=== PATIENT | female | born 1990 | race Caucasian/White ===

== ENCOUNTER 2018-06-15 22:27 | Emergency (ER) | payer BC, OTHER ==
[2018-06-15] MEDS ORDERED: Sodium Chloride 0.9% 1,000 ML IV ONE (22:31)
[2018-06-15] MEDS ORDERED: Ondansetron 4 MG/2 ML SDV IVPUSH ONE (22:31)
[2018-06-15 23:22] LABS: CHLORIDE,CL 105 mmol/L (98-107); SODIUM,NA 140 mmol/L (136-145)
--- NOTE | 2018-06-16 00:02 | EDM.PDOC ---
ED HPI GENERAL MEDICAL PROBLEM - General Chief Complaint: Abdominal Pain Stated Complaint: BACK PAIN Time Seen by Provider: 06/16/18 00:01 Source of Information: Reports: Patient - History of Present Illness INITIAL COMMENTS - FREE TEXT/NARRATIVE: HISTORY AND PHYSICAL: History of present illness: [Patient presents with history of miscarriage, she was treated through an OB in [place] although we are following hCGs. Locally as indicated on the electronic file Last week she did apply some tissue she continues to have pain cramping and some bleeding No fever vomiting chills sweats she does complain of nausea and abdominal cramps 5 out of 10 nonradiating ] Review of systems: As per history of present illness and below otherwise all systems reviewed and negative. Past medical history: As per history of present illness and as reviewed below otherwise noncontributory. Surgical history: As per history of present illness and as reviewed below otherwise noncontributory. Social history: No reported history of drug or alcohol abuse. Family history: As per history of present illness and as reviewed below otherwise noncontributory. Physical exam: HEENT: Atraumatic, normocephalic, pupils reactive, negative for conjunctival pallor or scleral icterus, mucous membranes moist, throat clear, neck supple, nontender, trachea midline. Lungs: Clear to auscultation, breath sounds equal bilaterally, chest nontender. Heart: S1S2, regular, negative for clicks, rubs, or JVD. Abdomen: Soft, nondistended, nontender. Negative for masses or hepatosplenomegaly. Negative for costovertebral tenderness. Pelvis: Stable nontender. Genitourinary: Deferred by patient Rectal: Deferred. Extremities: Atraumatic, negative for cords or calf pain. Neurovascular unremarkable. Neuro: Awake, alert, oriented. Cranial nerves II through XII unremarkable. Cerebellum unremarkable. Motor and sensory unremarkable throughout. Exam nonfocal. Diagnostics: [CBC CMP UA hCG Quant ABO type OB ultrasound ] Therapeutics: [Morphine 2 mg IV Zofran 8 mg IV Phenergan 25 mg IM ] Impression: [ complete ABO type O positive] Definitive disposition and diagnosis as appropriate pending reevaluation and review of above. abdominal Pain Score (Numeric/FACES): 7 - Related Data Allergies Allergy/AdvReac Type Severity Reaction Status Date / Time amoxicillin Allergy Hives Verified 05/20/15 19:10 Penicillins Allergy Hives Verified 05/20/15 19:10 Home Meds: Home Meds Sulfamethoxazole/Trimethoprim [Bactrim Ds Tablet] 1 each PO BID 7 Days tablet 05/19/15 [Rx] Hydrocodone/Acetaminophen [Hydrocodon-Acetaminophen 5-325] 1 each PO Q4HR #10 tablet 05/20/15 [Rx] Past Medical History - Past Health History Medical/Surgical History: Denies Medical/Surgical History HEENT History: Reports: None Cardiovascular History: Reports: None Respiratory History: Reports: None Gastrointestinal History: Reports: None Genitourinary History: Reports: None CARDIAC CARE UNIT NURSE History: Reports: None Musculoskeletal History: Reports: None Neurological History: Reports: None Psychiatric History: Reports: None Endocrine/Metabolic History: Reports: None Hematologic History: Reports: None Immunologic History: Reports: None Oncologic (Cancer) History: Reports: None Dermatologic History: Reports: None - Infectious Disease History Infectious Disease History: Reports: Chicken Pox - Past Surgical History Head Surgeries/Procedures: Reports: None HEENT Surgical History: Reports: None Cardiovascular Surgical History: Reports: None Endocrine Surgical History: Reports: None Musculoskeletal Surgical History: Reports: Other (See Below) Social & Family History - Family History Family Medical History: Noncontributory - Tobacco Use Smoking Status *Q: Never Smoker - Recreational Drug Use Recreational Drug Use: No ED ROS GENERAL - Review of Systems Review Of Systems: See Below ED EXAM, GENERAL - Physical Exam Exam: See Below Course - Vital Signs Last Recorded V/S: Last Vital Signs Temp 97.9 F 06/15/18 22:28 Pulse 80 06/16/18 00:47 Resp 18 06/16/18 00:47 BP 153/82 H 06/16/18 00:47 Pulse Ox 100 06/16/18 00:47 - Orders/Labs/Meds Orders: Active Orders 24 hr Category Date Time Status OB 1st Tri Sgl 1st Gest [US] Stat Exams 06/15/18 22:35 Taken Labs: Laboratory Tests 06/15/18 06/15/18 06/15/18 Range/Units 22:43 22:44 22:44 WBC (4.0-11.0) K/uL RBC (4.30-5.90) M/uL Hgb (12.0-16.0) g/dL Hct (36.0-46.0) % MCV (80.0-98.0) fL MCH (27.0-32.0) pg MCHC (31.0-37.0) g/dL RDW Std Deviation (28.0-62.0) fl RDW Coeff of Renee (11.0-15.0) % Plt Count (150-400) K/uL MPV (7.40-12.00) fL Neut % (Auto) (48.0-80.0) % Lymph % (Auto) (16.0-40.0) % [place] % (Auto) (0.0-15.0) % Eos % (Auto) (0.0-7.0) % Baso % (Auto) (0.0-1.5) % Neut # (Auto) (1.4-5.7) K/uL Lymph # (Auto) (0.6-2.4) K/uL [place] # (Auto) (0.0-0.8) K/uL Eos # (Auto) (0.0-0.7) K/uL Baso # (Auto) (0.0-0.1) K/uL Nucleated RBC % /100WBC Nucleated RBCs # K/uL Sodium 140 (136-145) mmol/L Potassium 4.2 (3.5-5.1) mmol/L Chloride 105 (98-107) mmol/L Carbon Dioxide 21.8 (21.0-32.0) mmol/L BUN 13 (7.0-18.0) mg/dL Creatinine 0.7 (0.6-1.0) mg/dL Est Cr Clr Drug Dosing 107.67 mL/min Estimated GFR (MDRD) > 60.0 ml/min Glucose 93 (74-106) mg/dL Calcium 9.2 (8.5-10.1) mg/dL Total Bilirubin 0.3 (0.2-1.0) mg/dL AST 17 (15-37) IU/L ALT 27 (14-63) IU/L Alkaline Phosphatase 48 (46-116) U/L Total Protein 7.4 (6.4-8.2) g/dL Albumin 3.9 (3.4-5.0) g/dL Globulin 3.5 (2.6-4.0) g/dL Albumin/Globulin Ratio 1.1 (0.9-1.6) Lipase 259 (73-393) U/L HCG, Quant 598.0 mIU/mL Urine Color Urine Appearance Urine pH (5.0-8.0) Ur Specific [place] (1.001-1.035) Urine Protein (NEGATIVE) mg/dL Urine Glucose (UA) (NEGATIVE) mg/dL Urine Ketones (NEGATIVE) mg/dL Urine Occult Blood (NEGATIVE) Urine Nitrite (NEGATIVE) Urine Bilirubin (NEGATIVE) Urine Urobilinogen (<2.0) EU/dL Ur Leukocyte Esterase (NEGATIVE) Blood Type O POSITIVE 06/15/18 06/15/18 Range/Units 22:46 23:30 WBC 10.44 (4.0-11.0) K/uL RBC 4.83 (4.30-5.90) M/uL Hgb 14.1 (12.0-16.0) g/dL Hct 41.8 (36.0-46.0) % MCV 86.5 (80.0-98.0) fL MCH 29.2 (27.0-32.0) pg MCHC 33.7 (31.0-37.0) g/dL RDW Std Deviation 42.8 (28.0-62.0) fl RDW Coeff of Renee 14 (11.0-15.0) % Plt Count 288 (150-400) K/uL MPV 9.40 (7.40-12.00) fL Neut % (Auto) 49.4 (48.0-80.0) % Lymph % (Auto) 41.1 H (16.0-40.0) % [place] % (Auto) 8.3 (0.0-15.0) % Eos % (Auto) 1.0 (0.0-7.0) % Baso % (Auto) 0.2 (0.0-1.5) % Neut # (Auto) 5.2 (1.4-5.7) K/uL Lymph # (Auto) 4.3 H (0.6-2.4) K/uL [place] # (Auto) 0.9 H (0.0-0.8) K/uL Eos # (Auto) 0.1 (0.0-0.7) K/uL Baso # (Auto) 0.0 (0.0-0.1) K/uL Nucleated RBC % 0.0 /100WBC Nucleated RBCs # 0 K/uL Sodium (136-145) mmol/L Potassium (3.5-5.1) mmol/L Chloride (98-107) mmol/L Carbon Dioxide (21.0-32.0) mmol/L BUN (7.0-18.0) mg/dL Creatinine (0.6-1.0) mg/dL Est Cr Clr Drug Dosing mL/min Estimated GFR (MDRD) ml/min Glucose (74-106) mg/dL Calcium (8.5-10.1) mg/dL Total Bilirubin (0.2-1.0) mg/dL AST (15-37) IU/L ALT (14-63) IU/L Alkaline Phosphatase (46-116) U/L Total Protein (6.4-8.2) g/dL Albumin (3.4-5.0) g/dL Globulin (2.6-4.0) g/dL Albumin/Globulin Ratio (0.9-1.6) Lipase (73-393) U/L HCG, Quant mIU/mL Urine Color YELLOW Urine Appearance CLEAR Urine pH 5.5 (5.0-8.0) Ur Specific [place] >= 1.030 (1.001-1.035) Urine Protein NEGATIVE (NEGATIVE) mg/dL Urine Glucose (UA) NEGATIVE (NEGATIVE) mg/dL Urine Ketones NEGATIVE (NEGATIVE) mg/dL Urine Occult Blood NEGATIVE (NEGATIVE) Urine Nitrite NEGATIVE (NEGATIVE) Urine Bilirubin NEGATIVE (NEGATIVE) Urine Urobilinogen 0.2 (<2.0) EU/dL Ur Leukocyte Esterase NEGATIVE (NEGATIVE) Blood Type Meds: Medications Discontinued Medications Generic Name Dose Route Start Last Admin Trade Name Freq PRN Reason Stop Dose Admin Sodium Chloride 1,000 mls @ 999 mls/hr 06/15/18 22:31 06/15/18 22:50 Normal Saline IV 06/15/18 23:31 999 mls/hr STAT ONE Administration Morphine Sulfate 2 mg 06/16/18 00:38 06/16/18 00:45 Morphine IVPUSH 06/16/18 00:39 2 mg ONETIME ONE Administration Ondansetron HCl 8 mg 06/15/18 22:31 06/15/18 22:50 Zofran IVPUSH 06/15/18 22:32 8 mg ONETIME ONE Administration Departure - Departure Time of Disposition: 01:07 Disposition: Home, Self-Care 01 Condition: Good Clinical Impression: Complete - Discharge Information Referrals: PCP,None [Primary Care Provider] - Forms: ED Department Discharge Additional Instructions: The following information is given to patients seen in the emergency department who are being discharged to home. This information is to outline your options for follow-up care. We provide all patients seen in our emergency department with a follow-up referral. The need for follow-up, as well as the timing and circumstances, are variable depending upon the specifics of your emergency department visit. If you don't have a primary care physician on staff, we will provide you with a referral. We always advise you to contact your personal physician following an emergency department visit to inform them of the circumstance of the visit and for follow-up with them and/or the need for any referrals to a consulting specialist. The emergency department will also refer you to a specialist when appropriate. This referral assures that you have the opportunity for follow-up care with a specialist. All of these measure are taken in an effort to provide you with optimal care, which includes your follow-up. Under all circumstances we always encourage you to contact your private physician who remains a resource for coordinating your care. When calling for follow-up care, please make the office aware that this follow-up is from your recent emergency room visit. If for any reason you are refused follow-up, please contact the [facility] emergency department at and asked to speak to the emergency department charge nurse. - My Orders Last 24 Hours: My Active Orders 06/15/18 22:35 OB 1st Tri Sgl 1st Gest [US] Stat - Assessment/Plan Last 24 Hours: My Active Orders 06/15/18 22:35 OB 1st Tri Sgl 1st Gest [US] Stat
[2018-06-16] MEDS ORDERED: Morphine 2 MG/ML Syringe IVPUSH ONE (00:38)
[2018-06-16] MEDS ORDERED: Promethazine 25 MG/ML SDV IM ONE (01:08)
[2018-06-16] MEDS ORDERED: HYDROmorphone 2 MG/ML SDV IVPUSH ONE (01:18)
[2018-06-16] MEDS ORDERED: HYDROmorphone 1 MG/ML Syringe IVPUSH ONE (01:23)
[2018-06-16] MEDS ORDERED: Iopamidol 755 MG/ML 500 ML Multipack Bottle IVPUSH STA (01:48)
--- NOTE | 2018-06-16 02:05 | CT ---
INDICATION: Pain, recent miscarriage TECHNIQUE: CT abdomen and pelvis acquired with 100 cc Isovue 370 IV contrast. COMPARISON: None FINDINGS: Lower chest: Partially calcified granuloma right lower lobe. Liver: Unremarkable. Spleen: Unremarkable. Pancreas: Unremarkable. Gallbladder and bile ducts: Unremarkable. Adrenal glands: Unremarkable. Kidneys: Horseshoe kidney. GI tract: Unremarkable. Appendix is not seen but no inflammatory changes identified in the right lower quadrant. Vascular structures: Unremarkable. Lymph nodes: Unremarkable. Miscellaneous: Unremarkable. No free air or significant free fluid. Pelvic Organs: Unremarkable. Bones: Unremarkable for age. IMPRESSION: No acute intra-abdominal process identified. Horseshoe kidney. Please note that all CT scans at this facility use dose modulation, iterative reconstruction, and/or weight-based dosing when appropriate to reduce radiation dose to as low as reasonably achievable. Dictated by Ilsa Landeros MD @ Jun 16 2018 2:00AM Signed by Dr. Ilsa Landeros @ Jun 16 2018 2:04AM
[2018-06-16 02:39] VITALS: BP 120/71
--- NOTE | 2018-06-16 14:09 | US ---
EXAM DATE: 06/15/18 PATIENT'S AGE: 28 Patient: CHERYL DESOUZA Facility: [facility], [facility] Site Site : 1990 Study: US-OB Pelvis [id number]/30/2019 11:20:13 PM Ordering Physician: TIEN Final Report: INDICATION: S/p intrauterine insemination 05/22/2018 abdominal pain and vaginal bleeding. History of dropping HCG, yesterday 1999, previously 5000. COMPARISON: None available. FINDINGS: Transvaginal and transabdominal ultrasound examination of the female pelvis was performed. Initial examination is performed with transabdominal technique and transvaginal technique is used for better visualization of the pelvic structures. There is no sign of an intrauterine gestational sac. The uterus is anteverted with no evidence of mass. It measures 8.2 x 3.7 x 5.3 cm. The endometrial lining is moderately increased thickness at 11 mm. The ovaries are normal in appearance, the right measuring 3.6 x 2.1 x 3.9 cm and the left measuring 2.2 x 1.7 x 1.8 cm. The left ovary is seen only using transabdominal examination. There is normal color and pulse doppler flow in both ovaries. There is no sign of free fluid in the pelvis. IMPRESSION: No sign of intrauterine gestational sac. Differential diagnosis includes early intrauterine gestation, completed spontaneous , or ectopic gestation. With the history of dropping beta HCG, completed spontaneous is most likely. Thickening of the endometrial lining consistent with the history of . Otherwise normal ultrasound examination of the female pelvis using transvaginal and transabdominal technique. Dictated by Kobi Zaragoza MD @ Jun 15 2018 11:57PM Signed by: Kobi Zaragoza MD @06/16/2018 12:01:25 AM (Electronic Signature) Report Signed by Proxy. JULIANN
== END 2018-06-16 02:30 | disposition home or self-care (01) ==
LOC: MW.ED 22:27
DX: O03.9 Complete or unspecified spontaneous abortion without complication (principal); Z88.0 Allergy status to penicillin; Z88.1 Allergy status to other antibiotic agents
CPT/HCPCS: 36415; 74177; 76801; 80053; 81003; 83690; 84702; 85025; 86900; 86901; 96361; 96374; 96375; 99284; J1170; J2270; J2405; J7040; Q9967

== ENCOUNTER 2021-02-27 13:40 | Emergency (ER) | payer BC ==
[2021-02-27 14:42] LABS: CORONAVIRUS COVID-19 NAA POSITIVE (NEGATIVE); INFLUENZA A NAA NEGATIVE (NEGATIVE); INFLUENZA B NAA NEGATIVE (NEGATIVE)
[2021-02-27 15:30] VITALS: BP 111/61; PULSE 84
== END 2021-02-27 15:29 | disposition home or self-care (01) ==
LOC: MW.ED 13:40
DX: U07.1 COVID-19 (principal); R55 Syncope and collapse; Z88.0 Allergy status to penicillin
CPT/HCPCS: 0240U; 36415; 85025; 99284

== ENCOUNTER 2023-09-30 22:54 | Emergency (ER) | payer BC ==
[2023-09-30 23:19] VITALS: BP 148/87; PULSE 89
== END 2023-09-30 23:42 | disposition home or self-care (01) ==
LOC: MW.ED 22:54
DX: R23.8 Other skin changes (principal); Z86.16 Personal history of COVID-19; Z88.0 Allergy status to penicillin
CPT/HCPCS: 99282

== ENCOUNTER 2023-12-07 13:24 | Emergency (ER) | payer BC ==
[2023-12-07 17:26] VITALS: BP 121/81; PULSE 97
== END 2023-12-07 17:25 | disposition home or self-care (01) ==
LOC: MW.ED 13:24
DX: O99.713 Diseases of the skin and subcutaneous tissue complicating pregnancy, third trimester (principal); M25.572 Pain in left ankle and joints of left foot; Z75.8 Other problems related to medical facilities and other health care; Z79.82 Long term (current) use of aspirin; Z88.0 Allergy status to penicillin; Z3A.36 36 weeks gestation of pregnancy
CPT/HCPCS: 93970; 93970-26; 99282; 99283